=== PATIENT | female | born 1950 | race Caucasian/White ===

== ENCOUNTER 2016-08-06 13:38 | Emergency (ER) | payer OTHER ==
[~2016-08-06] VITALS: Wt 73.5 kg
[~2016-08-06 13:38] MED LIST: ALBU8.5H3 INH; AMLO5TAB4 PO; CALC500T12 PO; COSO10 BOTH EYES; FER325 PO; FLUO20CA38 PO; FOLI-49 PO; IBUP800T25 PO; LATA2.5D9 BOTH EYES; MONT10TA21 PO; MORP15TA92 PO; MORP30TA89 PO; PYRI50CA PO; SIMV20TA2 PO
[2016-08-06] MEDS ORDERED: ALBUTEROL 0.083% (NEB) 2.5 MG/3 ML AMP HHN STA (14:50)
--- NOTE | 2016-08-06 14:54 | ERD ---
ER Documentation Chief Complaint Date/Time DATE: 08/06/16 TIME: 14:52 Chief Complaint PRODUCTIVE COUGH FOR 2 WKS. NO DISTRESS. NOT BETTER WITH OTC MEDS HPI Patient is a 65-year-old female with past medical history of asthma and recent chemotherapy and breast cancer surgery 03/2016 presents to the ED with cough, congestion, wheezing 2 week. She states that she went to her primary care doctor last week for cough syrup but she still has wheezing and productive cough. She denies green sputum or hemoptysis. She denies night sweats. She denies headache, dizziness, neck pain or neck stiffness. She denies chest pain. She denies abdominal pain, nausea, vomiting or diarrhea. She denies leg pain or leg swelling. She denies recent travel. ROS All systems reviewed and are negative except as per history of present illness. Medications Home Meds Active Scripts Albuterol Sulfate* (Proair HFA*) 8.5 Gm Hfa.aer.ad, 2 PUFF INH Q4, #1 INHALER Prov:MARYANNE BARCLAY PA-C 08/06/16 Cetirizine Hcl* (Zyrtec*) 10 Mg Capsule, 10 MG PO DAILY, #20 TAB.CHEW Prov:CORINATARIMARYANNE LEWIS PA-C 08/06/16 Benzonatate* (Tessalon Perle*) 100 Mg Capsule, 100 MG PO Q8H Y for COUGH for 14 Days, CAP Prov:CORINATANAYANA LUEVANOAZ PA-C 08/06/16 Azithromycin* (Zithromax*) 250 Mg Tablet, 250 MG PO .INDIA DIRECTED, #6 TAB TAKE 500 MG (2 TABS) THE FIRST DAY THEN 250 MG (1 TAB) DAYS 2-5 Prov:MARYANNE BARCLAY PA-C 08/06/16 Ibuprofen* (Motrin*) 800 Mg Tab, 800 MG PO Q6H Y for PAIN AND OR ELEVATED TEMP, #30 TAB Prov:LEONIDES SANDOVAL MUSIC REHABILITATION THERAPIST 11/14/14 Reported Medications Fluoxetine Hcl* (Prozac*) 20 Mg Capsule, 20 MG PO DAILY, CAP 11/08/15 Albuterol Sulfate* (Proair HFA*) 8.5 Gm Hfa.aer.ad, 2 PUFF INH Q6H Y for WHEEZING AND SOB, #1 INHALER 11/08/15 Morphine Sulfate* (Ms Contin*) 30 Mg Tablet.sa, 30 MG PO Q12, TAB.SA 08/17/14 Morphine Sulfate* (Ms Contin*) 15 Mg Tablet.sa, 15 MG PO Q12, TAB 08/17/14 Latanoprost (Xalatan) 2.5 Ml Drops, 1 DROP BOTH EYES QHS 08/17/14 Dorzolamide-Timolol* (Cosopt*) 2%-0.5% Soln, 1 DROP BOTH EYES BID, BOTTLE 08/17/14 Ferrous Sulfate* (Ferrous Sulfate*) 325 Mg Tabec, 325 MG PO DAILY, TAB 01/09/14 Amlodipine Besylate* (Norvasc*) 5 Mg Tablet, 5 MG PO DAILY, TAB 01/09/14 Montelukast Sodium* (Singulair*) 10 Mg Tablet, 10 MG PO HS, TAB 01/09/14 Folic Acid* (Folic Acid*) 1 Mg Tablet, 1 MG PO DAILY, TAB 01/09/14 Pyridoxine Hcl* (Vitamin B-6*) 50 Mg Capsule, 50 MG PO DAILY, CAP 01/09/14 Simvastatin (Simvastatin) 20 Mg Tablet, 20 MG PO HS, TAB 01/09/14 Calcium Carbonate* (Oysco-500*) 1 Tab Tablet, 1 TAB PO DAILY, TAB 01/09/14 Allergies Allergies: Coded Allergies: sulfamethoxazole (Verified Allergy, Mild, RASHES, SWELLING, 08/06/16) trimethoprim (Verified Allergy, Mild, RASHES, SWELLING, 08/06/16) PMhx/Soc History of Surgery: Yes (BLADDER, BACK LIPOMA, HERNIA, breast) Anesthesia Reaction: No Hx Neurological Disorder: No Hx Respiratory Disorders: Yes (ASTHMA) Hx Cardiac Disorders: Yes (HTN, HYPERLIPIDEMIA) Hx Psychiatric Problems: No Hx Miscellaneous Medical Probl: No Hx Alcohol Use: No Hx Substance Use: No Hx Tobacco Use: No FmHx Family History: No coronary disease, No diabetes, No other Physical Exam Vitals Vital Signs Date Time Temp Pulse Resp B/P Pulse Ox O2 Delivery O2 Flow Rate FiO2 08/06/16 15:20 85 20 96 21 08/06/16 13:44 99.0 88 22 122/76 95 Physical Exam GENERAL: Well-developed, well-nourished female. Appears in no acute distress. ENT: Moist mucous membranes. No uvula deviation. No kissing tonsils. No exudates. NECK: Supple. No lymphadenopathy or thyromegaly. No meningismus. negative kernig. negative brudinski. LUNG: Clear to auscultation bilaterally. No rhonchi, rales or coarse breath sounds. Bilateral wheezing HEART: Regular rate and rhythm. No murmurs, rubs or gallops. ABDOMEN: No scars, ecchymosis or rashes noted. Soft, nontender, and nondistended. Positive bowel sounds in all four quadrants. No rebound tenderness , no guarding. (-) McBurneys point tenderness. No CVA tenderness. BACK: No midline tenderness. Extremities: Equal pulses bilaterally. No peripheral clubbing, cyanosis or edema. No unilateral leg swelling. Negative Homans sign NEUROLOGIC: Alert and oriented. Moving all four extremities. 5/5 strength in all extremities. Normal speech. Steady gait. SKIN: Normal color. Warm and dry. No rashes or lesions. Capillary refill < 2 seconds Results 24 hrs Current Medications Medications (Trade) Dose Ordered Sig/Alejandra Route PRN Reason Start Time Stop Time Status Last Admin Dose Admin Albuterol (Proventil 0.083% (Neb)) 2.5 mg ONCE STAT N 08/06/16 14:50 08/06/16 14:52 DC 08/06/16 15:18 Ipratropium [place] (Atrovent 0.02% (Neb)) 0.5 mg ONCE ONCE HHN 08/06/16 15:00 08/06/16 15:01 DC 08/06/16 15:18 Dexamethasone (Decadron) 10 mg ONCE ONCE IM 08/06/16 16:00 08/06/16 16:01 DC 08/06/16 15:55 Procedures/MDM ER COURSE: I kept the patient and/or family informed of laboratory and diagnostic imaging results throughout the emergency room course. IMAGING STUDIES [place] [id number] Radiology Main Line: [phone] DIAGNOSTIC IMAGING REPORT Patient: FABI DENTON : 1950 Age: 65 Sex: F MR #: [id number] DOS: 08/06/16 1450 Ordering MD: MARYANNE BARCLAY PA-C Location: [facility] Room/Bed: PROCEDURE: CHEST 1VW CLINICAL INDICATION: Shortness of breath TECHNIQUE: Single frontal view of the chest was obtained COMPARISON: 11/08/2015 FINDINGS: The cardiac size is normal. Aortic vascular calcifications are demonstrated. There is no pulmonary vascular congestion. The lungs are clear. No consolidation, effusion, or pneumothorax. Mild degenerative changes of the visualized osseous structures are visualized. IMPRESSION: 1. No acute cardiopulmonary process. 2. Atherosclerosis with a tortuous aorta is seen. RPTAT:PP .Rajesh Carrasco MD, Date Time Electronically viewed and signed by .Rajesh Carrasco MD, on 08/06/2016 15:11 .V/ CC: MARYANNE BARCLAY PA-C PROCEDURES RT consult. Albuterol and Atrovent. Tolerated well with no adverse reaction. Decadron 10 mg IM. Tolerated well with no adverse reaction MEDICAL DECISION MAKING: This is a 65-year-old female with a history of asthma who presents with cough, congestion and runny nose 2 weeks. Vital signs were reviewed. Patient is afebrile. Patient is not hypoxic. Patient is not toxic or ill-appearing. Patient likely has URI of viral etiology. Her x-rays of by radiologist is unremarkable. However due to her history of asthma and recent chemotherapy I will be treating the patient with an antibiotic. Patient does not show signs of respiratory distress. I reexamined patient after breathing treatment and she stated improvement in symptoms. Low suspicion for pneumonia, PE, pneumothorax, ACS, epiglottitis, obstruction, TB, pertussis, meningitis, sepsis. I have low suspicion for PE or DVT. Patient is not tachycardic and does not have leg swelling. DISCHARGE: At this time, patient is stable for discharge and outpatient management with no new complaints during the ER course. Patient was sent home with azithromycin, Tessalon Perles, Zyrtec, albuterol. Patient will be discharged home with instructions to recheck for new or worsening symptoms such as fever, nausea, weakness, LOC and to follow up with primary care in the next 1-2 days. Patient was advised to return to the ER for any new or worsening symptoms. Plan was discussed and patient and/or family understands and agrees. Home instructions were given. Departure Diagnosis: Primary Impression: Cough Condition: Stable MARYANNE BARCLAY PA-C August 06, 2016 14:54
[2016-08-06] MEDS ORDERED: IPRATROPIUM (NEB) 0.5 MG/2.5 ML AMP HHN ONE (15:00)
--- NOTE | 2016-08-06 15:12 | RADRPT ---
PROCEDURE: CHEST 1VW CLINICAL INDICATION: Shortness of breath TECHNIQUE: Single frontal view of the chest was obtained COMPARISON: 11/08/2015 FINDINGS: The cardiac size is normal. Aortic vascular calcifications are demonstrated. There is no pulmonary vascular congestion. The lungs are clear. No consolidation, effusion, or pneumothorax. Mild degenerative changes of the visualized osseous structures are visualized. IMPRESSION: 1. No acute cardiopulmonary process. 2. Atherosclerosis with a tortuous aorta is seen. RPTAT:PP .Rajesh Carrasco MD, Date Time Electronically viewed and signed by .Rajesh Carrasco MD, on 08/06/2016 15:11 .V/
[2016-08-06] MEDS ORDERED: AZIT250T94 PO (15:22)
[2016-08-06] MEDS ORDERED: CETI10CA PO (15:45)
[2016-08-06] MEDS ORDERED: BENZ100C70 PO (15:45)
[2016-08-06] MEDS ORDERED: ALBU8.5H3 INH (15:46)
[2016-08-06] MEDS ORDERED: DEXAMETHASONE 10 MG/ML 1 ML INJ IM ONE (16:00)
[2016-08-06 16:05] VITALS: BP 112/62; PULSE 64; RESP 22; TEMP 98.7
== END 2016-08-06 16:05 | disposition home or self-care (01) ==
LOC: FTE 13:38
DX: R05 Cough (principal); I10 Essential (primary) hypertension; J45.909 Unspecified asthma, uncomplicated
CPT/HCPCS: 71010; 94664; 96372; J1100; Z7502; Z7610

== ENCOUNTER 2017-01-05 22:04 | Inpatient (IN) | payer OTHER ==
[~2017-01-05] VITALS: Ht 157.5 cm; Wt 81.0 kg
[~2017-01-05 22:04] MED LIST changes: +AZIT250T94 PO; +BENZ100C70 PO; +CETI10CA PO
[2017-01-05] MEDS ORDERED: ONDANSETRON 4 MG INJ IV STA (22:49)
[2017-01-05 22:50] LABS: BASOPHILS % 0.4 % (0.0-2.0); EOSINOPHILS # 0.1 10^3/ul (0.0-0.5); EOSINOPHILS % 1.5 % (0.0-7.0); HEMATOCRIT 43.8 % (37.0-47.0); HEMOGLOBIN 14.6 g/dl (12.0-16.0); MEAN CORPUSCULAR HEMOGLOBIN 32.7 pg (29.0-33.0); MEAN CORPUSCULAR HGB CONC 33.3 g/dl (32.0-37.0); MEAN PLATELET VOLUME 9.6 fl (7.4-10.4); MONOCYTE # 0.7 10^3/ul (0.3-0.9); MONOCYTES % 8.9 % (0.0-11.0); NEUTROPHIL # 5.9 10^3/ul (1.6-7.5); NEUTROPHILS % 75.6 % (39.0-77.0); PLATELET COUNT 216 10^3/UL (140-415); RED BLOOD COUNT 4.47 10^6/ul (4.20-5.40); RED CELL DISTRIBUTION WIDTH 12.8 % (11.5-14.5); WHITE BLOOD COUNT 7.8 10^3/ul (4.8-10.8)
[2017-01-05] MEDS ORDERED: LORAZEPAM 2 MG INJ IV ONE (23:00)
[2017-01-05 23:08] LABS: ANION GAP 11 (8-16); BLOOD UREA NITROGEN 21 mg/dl (7-20); CALCIUM 9.3 mg/dl (8.4-10.2); CARBON DIOXIDE 22 mmol/L (21-31); CHLORIDE 106 mmol/L (97-110); CREATININE 0.79 mg/dl (0.44-1.00); GLUCOSE 135 mg/dl (70-220); POTASSIUM 4.5 mmol/L (3.5-5.1); SODIUM 134 mmol/L (135-144)
[2017-01-05 23:24] LABS: TROPONIN-I < 0.012 ng/ml (0.00-0.12)
--- NOTE | 2017-01-06 00:10 | RADRPT ---
PROCEDURE: Chest xray. CLINICAL INDICATION: Chest pain TECHNIQUE: A portable semiupright AP view of the chest was obtained. COMPARISON: 08/06/2016 FINDINGS: The cardiomediastinal silhouette is within normal limits. Atherosclerotic calcifications are again n oted in the aorta. The lungs are well expanded and show normal vascularity. No focal opacity, pleur al effusion, or pneumothorax is identified. The skeletal structures and soft tissues are unremarkab le. IMPRESSION: No acute intrathoracic abnormality. RPTAT:PP .Loren Bernal MD, MD Date Time Electronically viewed and signed by .Loren Bernal MD, on 01/06/2017 00:10 .K/
--- NOTE | 2017-01-06 00:44 | RADRPT ---
PROCEDURE: CT HEAD WITHOUT CONTRAST: CLINICAL INDICATION: 66 years of age female. Headache . COMPARISON: None available. TECHNIQUE: CT of the head was performed without IV contrast. Coronal and sagittal reformatted images were obtained from the axial source images. Images were reviewed on a high-resolution PACS workstat ion. Dose information: The estimated radiation dose (CTDI vol mGy) for each series in this exam is 45 and 45. The estimated cumulative dose (DLP mGy-cm) is 1440. One or more of the following dose reduction techniques were used: - Automated exposure control. - Adjustment of the mA and/or kV according to patient size. - Use of iterative reconstruction technique. FINDINGS: Parenchyma: Negative for evidence of acute intraparenchymal hemorrhage, mass effect or large territo ry infarct. Mena-white matter differentiation is maintained. Minimal atherosclerotic calcification i nvolving the right supraclinoid internal carotid artery and bilateral cavernous carotid arteries. Ventricles and extra-axial spaces: Appropriate for age. No abnormal extra-axial fluid collections ar e identified. Negative for evidence of acute subarachnoid or extra-axial hemorrhage. Visualized paranasal sinuses: Clear. Mastoid air cells: Clear. Bones: There is a 2.6 cm lytic lesion in the right frontal bone that results in destruction of the o uter and inner tables of the skull. There is another 0.8 cm lytic lesion also in the right frontal b one. Additional comment: 1.3 cm subcutaneous nodule overlying the left zygomatic arch may represent a nikki aceous cyst (5/3). IMPRESSION: 1. Negative for evidence of acute intracranial hemorrhage or mass effect. 2. Two lytic lesions in the right frontal bone measuring up to 2.6 cm are concerning for metastatic disease. Findings were discussed with Dr. Swanson by Dr. Liza Vega on January 06, 2017 at 12:40 AM. He in dicates the patient has a history of breast cancer. RPTAT: HCTS Physician Junior Date Time Electronically viewed and signed by Torrie Vega Physician on 01/06/2017 00:44 CS/
[2017-01-06] MEDS ORDERED: morphine 4 MG/ML VIAL IV STA (02:09)
--- NOTE | 2017-01-06 03:11 | ERA ---
ER Documentation Chief Complaint Date/Time DATE: 01/06/17 TIME: 03:09 Chief Complaint c/o SB, asthma, high blood pressure, CP x 4 days. HPI This is a 66-year-old who comes in with complaints of headache for the past 4 days. She said she still anxious average that she feels like her blood pressure may be running high as well. Pain is mild to moderate in intensity though does not do well with no chills denies any other current complaints denies any focal neurological issues denies any visual changes ROS All systems reviewed and are negative except as per history of present illness. Medications Home Meds Active Scripts Albuterol Sulfate* (Proair HFA*) 8.5 Gm Hfa.aer.ad, 2 PUFF INH Q4, #1 INHALER Prov:MARYANNE BARCLAY-C 08/06/16 Cetirizine Hcl* (Zyrtec*) 10 Mg Capsule, 10 MG PO DAILY, #20 TAB.CHEW Prov:MARYANNE BARCLAY-C 08/06/16 Benzonatate* (Tessalon Perle*) 100 Mg Capsule, 100 MG PO Q8H Y for COUGH for 14 Days, CAP Prov:MARYANNE BARCLAY PA-C 08/06/16 Azithromycin* (Zithromax*) 250 Mg Tablet, 250 MG PO .ZPACK DIRECTED, #6 TAB TAKE 500 MG (2 TABS) THE FIRST DAY THEN 250 MG (1 TAB) DAYS 2-5 Prov:MARYANNE BARCLAY-C 08/06/16 Ibuprofen* (Motrin*) 800 Mg Tab, 800 MG PO Q6H Y for PAIN AND OR ELEVATED TEMP, #30 TAB Prov:LEONIDES SANDOVAL. UPKEEP MECHANIC 11/14/14 Reported Medications Fluoxetine Hcl* (Prozac*) 20 Mg Capsule, 20 MG PO DAILY, CAP 11/08/15 Albuterol Sulfate* (Proair HFA*) 8.5 Gm Hfa.aer.ad, 2 PUFF INH Q6H Y for WHEEZING AND SOB, #1 INHALER 11/08/15 Morphine Sulfate* (Ms Contin*) 30 Mg Tablet.sa, 30 MG PO Q12, TAB.SA 08/17/14 Morphine Sulfate* (Ms Contin*) 15 Mg Tablet.sa, 15 MG PO Q12, TAB 08/17/14 Latanoprost (Xalatan) 2.5 Ml Drops, 1 DROP BOTH EYES QHS 08/17/14 Dorzolamide-Timolol* (Cosopt*) 2%-0.5% Soln, 1 DROP BOTH EYES BID, BOTTLE 08/17/14 Ferrous Sulfate* (Ferrous Sulfate*) 325 Mg Tabec, 325 MG PO DAILY, TAB 01/09/14 Amlodipine Besylate* (Norvasc*) 5 Mg Tablet, 5 MG PO DAILY, TAB 01/09/14 Montelukast Sodium* (Singulair*) 10 Mg Tablet, 10 MG PO HS, TAB 01/09/14 Folic Acid* (Folic Acid*) 1 Mg Tablet, 1 MG PO DAILY, TAB 01/09/14 Pyridoxine Hcl* (Vitamin B-6*) 50 Mg Capsule, 50 MG PO DAILY, CAP 01/09/14 Simvastatin (Simvastatin) 20 Mg Tablet, 20 MG PO HS, TAB 01/09/14 Calcium Carbonate* (Oysco-500*) 1 Tab Tablet, 1 TAB PO DAILY, TAB 01/09/14 Allergies Allergies: Coded Allergies: sulfamethoxazole (Verified Allergy, Mild, RASHES, SWELLING, 08/06/16) trimethoprim (Verified Allergy, Mild, RASHES, SWELLING, 08/06/16) PMhx/Soc History of Surgery: Yes (BLADDER, BACK LIPOMA, HERNIA, breast) Anesthesia Reaction: No Hx Neurological Disorder: No Hx Respiratory Disorders: Yes (ASTHMA) Hx Cardiac Disorders: Yes (HTN, HYPERLIPIDEMIA) Hx Psychiatric Problems: No Hx Miscellaneous Medical Probl: No Hx Alcohol Use: No Hx Substance Use: No Hx Tobacco Use: No Smoking Status: Never smoker Physical Exam Vitals Vital Signs Date Time Temp Pulse Resp B/P Pulse Ox O2 Delivery O2 Flow Rate FiO2 01/06/17 01:55 68 18 164/104 98 Room Air 01/05/17 22:09 98.4 75 18 159/74 96 Physical Exam Const: [] Head: Atraumatic Eyes: Normal Conjunctiva ENT: Normal External Ears, Nose and Mouth. Neck: Full range of motion..~ No meningismus. Resp: Clear to auscultation bilaterally Cardio: Regular rate and rhythm, no murmurs Abd: Soft, non tender, non distended. Normal bowel sounds Skin: No petechiae or rashes Back: No midline or flank tenderness Ext: No cyanosis, or edema Neur: Awake and alert Psych: Normal Mood and Affect Result Diagram: 01/05/17223901/05/172239 Results 24 hrs Laboratory Tests Test 01/05/17 22:40 White Blood Count 7.810^3/ul Red Blood Count 4.4710^6/ul Hemoglobin 14.6g/dl Hematocrit 43.8% Mean Corpuscular Volume 98.0fl Mean Corpuscular Hemoglobin 32.7pg Mean Corpuscular Hemoglobin Concent 33.3g/dl Red Cell Distribution Width 12.8% Platelet Count 71389^3/UL Mean Platelet Volume 9.6fl Neutrophils % 75.6% Lymphocytes % 13.0% Monocytes % 8.9% Eosinophils % 1.5% Basophils % 0.4% Nucleated Red Blood Cells % 0.0/100WBC Neutrophils # 5.910^3/ul Lymphocytes # 1.010^3/ul Monocytes # 0.710^3/ul Eosinophils # 0.110^3/ul Basophils # 0.010^3/ul Nucleated Red Blood Cells # 0.010^3/ul Sodium Level 134mmol/L Potassium Level 4.5mmol/L Chloride Level 106mmol/L Carbon Dioxide Level 22mmol/L Anion Gap 11 Blood Urea Nitrogen 21mg/dl Creatinine 0.79mg/dl Glucose Level 135mg/dl Calcium Level 9.3mg/dl Troponin I < 0.012ng/ml Current Medications Medications (Trade) Dose Ordered Sig/Alejandra Route PRN Reason Start Time Stop Time Status Last Admin Dose Admin Lorazepam (Ativan) 1 mg ONCE ONCE IV 01/05/17 23:00 01/05/17 23:01 DC 01/05/17 22:58 Ondansetron HCl (Zofran Inj) 4 mg ONCE STAT IV 01/05/17 22:49 01/05/17 22:51 DC 01/05/17 22:58 Morphine Sulfate (morphine) 4 mg ONCE STAT IV 01/06/17 02:09 01/06/17 02:10 DC 01/06/17 02:19 Procedures/MDM EKG: Rate/Rhythm: [Normal Sinus Rhythm] QRS, ST, T-waves: [No changes consistent w/ acute ischemia] Impression: [No evidence of ischemia or arrhythmia] Chest X-ray 1V Interpreted by me: Soft Tissue: No acute abnormalities Bones: No acute abnormalities Mediastinum/Cardiac Silhouette/Lungs: [No acute abnormalities] Adequate decision-making: This very pleasant patient who comes in with complaints of headache. There are noted lytic lesions on CT scan likely for metastatic disease per the radiologist. Patient will be admitted to the hospital to Dr. Medellin for further evaluation and management Departure Diagnosis: Primary Impression: Head ache Qualified Code: R51 - Nonintractable headache, unspecified chronicity pattern , unspecified headache type Condition: Serious DANIEL CHANG Jan 06, 2017 03:10
[2017-01-06 03:16] VITALS: PULSE 68; TEMP 98.8
[2017-01-06 03:36] VITALS: BP 158/92; RESP 16
[2017-01-06 04:06] VITALS: Ht 157.5 cm; Wt 81.0 kg
[2017-01-06] MEDS ORDERED: ALBUTEROL 18 GM INHALER INH PRN (05:00)
[2017-01-06 05:14] LABS: CREATINE KINASE 28 IU/L (23-200)
[2017-01-06 05:28] LABS: CK-MB 0.25 ng/ml (0.0-2.4)
[2017-01-06 05:30] LABS: TROPONIN-I < 0.012 ng/ml (0.00-0.12)
[2017-01-06] MEDS ORDERED: CARBOXYMETHYLCELLULOSE 0.5% 0.1 ML OPH BOTH EYES PRN (06:30)
[2017-01-06] MEDS: SOD CHLORIDE 0.9% 1,000 ML IV SCH (06:43)
[2017-01-06] MEDS: morphine 2 MG INJ IV PRN ×2 (06:44→11:23)
[2017-01-06 07:42] VITALS: BP 140/61; RESP 19
[2017-01-06] MEDS: CALCIUM CARBONATE 1.25 GM TAB PO SCH ×2 (08:27→10:04)
[2017-01-06] MEDS: FERROUS SULFATE (EC) 325 MG TAB PO SCH ×2 (08:27→09:00)
[2017-01-06] MEDS: PYRIDOXINE 50 MG TAB PO SCH ×2 (08:27→09:00)
[2017-01-06] MEDS: FLUOXETINE 20 MG CAP PO SCH (08:27)
[2017-01-06] MEDS: AMLODIPINE 5 MG TAB PO SCH (08:28)
[2017-01-06] MEDS: DORZOLAMIDE/TIMOLOL 10 ML OPH BOTH EYES SCH ×2 (08:28→20:09)
[2017-01-06] MEDS: FOLIC ACID 1 MG TAB PO SCH ×2 (08:28→09:00)
[2017-01-06] MEDS: BRIMONIDINE 0.1% 5 ML OPH BOTH EYES SCH (08:29)
[2017-01-06] MEDS ORDERED: morphine (ER) 15 MG TAB PO SCH (09:00)
[2017-01-06] MEDS ORDERED: morphine (ER) 30 MG TAB PO SCH (09:00)
[2017-01-06] MEDS ORDERED: ONDANSETRON 4 MG INJ IV PRN (11:30)
[2017-01-06 12:26] LABS: CREATINE KINASE 28 IU/L (23-200)
[2017-01-06 12:35] LABS: CK-MB 0.24 ng/ml (0.0-2.4)
[2017-01-06 12:39] LABS: TROPONIN-I < 0.012 ng/ml (0.00-0.12)
[2017-01-06] MEDS: morphine 4 MG/ML VIAL IV PRN ×3 (15:26→23:38)
[2017-01-06 19:30] VITALS: BP 125/78; RESP 19
[2017-01-06] MEDS: MONTELUKAST 10 MG TAB PO SCH (20:06)
[2017-01-06] MEDS: LATANOPROST 0.005% 2.5 ML OPH BOTH EYES SCH (20:06)
[2017-01-06] MEDS: ATORVASTATIN 10 MG TAB PO SCH (20:06)
--- NOTE | 2017-01-06 20:41 | QN ---
Documentation Comment [id number] LUIS RO MD Jan 06, 2017 20:41
[2017-01-07 02:30] VITALS: BP 120/60; RESP 18
[2017-01-07] MEDS: SOD CHLORIDE 0.9% 1,000 ML IV SCH ×2 (05:00→19:52)
[2017-01-07] MEDS: morphine 4 MG/ML VIAL IV PRN ×4 (05:11→21:42)
--- NOTE | 2017-01-07 05:35 | HP ---
DATE OF ADMISSION: 01/06/2017 HISTORY OF PRESENT ILLNESS: The patient is a 66-year-old female with history of breast cancer, status post right breast surgery, presented to this hospital with headache, noted to have lytic lesion on the scalp by CT scan and Dr. Pope, who is the primary oncologist, has been called. The patient is being admitted for further management . Denies numbness, weakness, tingling. PAST MEDICAL HISTORY: Positive for breast CA, history of hypertension, history of shoulder pain in the past, history of DJD, history of hernia repair and removal of benign tumor from the neck, history of asthma by history, history of invasive carcinoma of the right breast status post right partial mastectomy, history of treatment in the past. ALLERGY HISTORY: SEPTRA. SOCIAL HISTORY: Negative. FAMILY HISTORY: Negative. MEDICATION HISTORY: Patient is on: 1. Albuterol. 2. Amlodipine. 3. Zithromax. 4. Benzonatate. 5. Calcium carbonate. 6. Zyrtec. 7. Cosopt. 8. eye drops 9. Fluoxetine. 10. Folic acid. 11. Ibuprofen. 12. Xalatan. 13. Singulair. 14. tums. 15. mvi_. 16. Simvastatin. REVIEW OF SYSTEMS: HEENT: Headache. RESPIRATORY: Unremarkable. CARDIOVASCULAR: Unremarkable. ABDOMEN: Unremarkable. EXTREMITIES: No swelling. CENTRAL NERVOUS SYSTEM: No numbness, weakness, tingling. MUSCULOSKELETAL: Generalized pain. PHYSICAL EXAMINATION: GENERAL: The patient is awake, alert. VITAL SIGNS: Stable. HEAD: Atraumatic, normocephalic. Pupils equal, reactive to light. NECK: Supple. There is no JVD. LUNGS: Clear. CARDIOVASCULAR: S1, S2 normal. ABDOMEN: Soft, nontender. Bowel sounds present. No palpable mass or hepatosplenomegaly. EXTREMITIES: No cyanosis, clubbing, edema. CENTRAL NERVOUS SYSTEM: The patient is awake, alert, no focal deficit. LABORATORY DATA: Chest x-ray negative. CT brain shows: 1. Negative evidence of acute intracranial hemorrhage. 2. Lytic lesion in the right frontal bone, and noted measuring 2.6 cm. IMPRESSION: 1. Lytic bone lesion in the scalp. 2. History of breast cancer. 3. Rule out metastatic carcinoma. 4. The patient has hyponatremia. PLAN: To continue home medication, pain medication, blood pressure medication and later on, patient will have oncology consultation with Dr. Pope. Orders were done. Dictated By: LUIS RO MD BS/NTS Conf#: [id number] DID#: [id number] MTDD
[2017-01-07 08:12] VITALS: BP 147/72; RESP 18
[2017-01-07] MEDS: DORZOLAMIDE/TIMOLOL 10 ML OPH BOTH EYES SCH ×2 (09:00→20:40)
[2017-01-07] MEDS ORDERED: INFLUENZA VIRUS VACCINE 0.5 ML (DISPENSING) IM* ONE (09:00)
[2017-01-07] MEDS: BRIMONIDINE 0.1% 5 ML OPH BOTH EYES SCH (09:17)
[2017-01-07] MEDS: PYRIDOXINE 50 MG TAB PO SCH (09:17)
[2017-01-07] MEDS: FOLIC ACID 1 MG TAB PO SCH (09:18)
[2017-01-07] MEDS: FERROUS SULFATE (EC) 325 MG TAB PO SCH (09:18)
[2017-01-07] MEDS: AMLODIPINE 5 MG TAB PO SCH (09:18)
[2017-01-07] MEDS: CALCIUM CARBONATE 1.25 GM TAB PO SCH (09:18)
[2017-01-07] MEDS: FLUOXETINE 20 MG CAP PO SCH (09:18)
[2017-01-07] MEDS ORDERED: BARIUM SULF 2% 450 ML BTL (BERRY SMOOTHIE) PO ONE (10:00)
[2017-01-07] MEDS ORDERED: SOD CHLORIDE 0.9% 100 ML ONE (11:42)
[2017-01-07] MEDS ORDERED: IODIXANOL LOCM 100 ML BTL ONE (11:42)
--- NOTE | 2017-01-07 14:35 | RADRPT ---
PROCEDURE: CT Abdomen and Pelvis with contrast. CLINICAL INDICATION: Metastatic disease. TECHNIQUE: Multiple contiguous axial CT images of the abdomen and pelvis were obtained following t he administration of 100 cc of Visipaque 320. Coronal and sagittal reconstructions were also perfor med. CTDIvol (mGy): 16.54; Total Exam DLP (mGy-cm): 1183.96. One or more of the following dose reduction techniques were utilized: - Automated exposure control. - Adjustment of the mA and/or kV according to patient size. - Use of iterative reconstruction technique. COMPARISON: 12/25/2007. FINDINGS: The liver and spleen are homogeneous in enhancement. Cholelithiasis is present. The pancreas and ri ght adrenal gland are unremarkable. There is a 5.0 cm left adrenal myelolipoma, which is grossly unc hanged in size. The kidneys are symmetric in size and enhancement. There is no hydronephrosis or abnormal perinephr ic inflammation. There are no ureteral stones. The abdominal aorta is normal in caliber. Atherosclerotic calcification is present. There is no lambert aortic / retroperitoneal lymphadenopathy. 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 Bariatric surgical changes are identified. The small intestines are unremarkable. A moderate volume of air and stool are seen throughout the colon. Diverticulosis of the distal colon is present. The a ppendix is normal. There are no focal inflammatory changes of the mesentery. There is no mesenteric lymphadenopathy. There is no ascites. The bladder is collapsed. Nonspecific heterogeneity of the uterine myometrium is observed. There is a 3.9 cm circumscribed round cyst of simple fluid density within the left ovary, which previously me asured 2.9 cm. There is a 2.2 cm cyst within the right ovary, which is unchanged in size. There is n o free pelvic fluid. There is no pelvic sidewall or inguinal lymphadenopathy. Multilevel degenerative disc disease of the lumbar spine is observed. Bilateral L5 pars interarticul carissa defects are present. Facet degenerative changes of the lower lumbar spine are observed. Severe right hip osteoarthritis is observed. Body wall soft tissues are unremarkable. IMPRESSION: No evidence of abdominopelvic metastatic disease, mass, lymphadenopathy or acute inflammatory pathol ogy. Cholelithiasis. No evidence of cholecystitis. Diverticulosis. No evidence of diverticulitis. 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 Stable left adrenal myelolipoma. RPTAT: HLST .Yany Cardona MD, MD Date Time Electronically viewed and signed by .Yany Cardona MD, MD on 01/07/2017 14:35 .T/
--- NOTE | 2017-01-07 14:44 | RADRPT ---
PROCEDURE: CT Chest with contrast. CLINICAL INDICATION: Breast cancer. Evaluate for metastases. TECHNIQUE: CT scan of the chest with contrast was performed following the uncomplicated intravenou s administration of 100 cc of Visipaque 320. Coronal and sagittal reformatted images were obtained from the axial source images. Images were reviewed on a high-resolution PACS workstation. CTDIvol (m Gy): 16.54; Total Exam DLP (mGy-cm): 1183.96. One or more of the following dose reduction techniques were utilized: - Automated exposure control. - Adjustment of the mA and/or kV according to patient size. - Use of iterative reconstruction technique. COMPARISON: Chest x-ray 01/05/2017. CTA chest 11/08/2015. FINDINGS: Limited imaging of the lower neck is unremarkable. The heart is not enlarged. There is no pericardial effusion. There is no mediastinal, hilar or axi llary lymphadenopathy. There is a 6.3 x 1.3 cm elongated right pericardial cyst which is smaller in size. The thoracic aorta is normal in caliber. Atherosclerotic calcification is present. Coronary artery calcifications are present. The pulmonary arteries are not enlarged. There is no pulmonary consolidation, pleural effusion or concerning pulmonary nodule. Mild subpleur al fibrotic changes are seen within the right upper lobe. Scattered atelectatic changes are seen wit hin the lung bases. The tracheobronchial tree is normal in caliber with mild diffuse bronchial wall thickening. Mild degenerative changes of the thoracic spine are present. There are no concerning osseous lesions . Skin and trabecular thickening of the visualized portion of the right breast is observed. IMPRESSION: No evidence of pulmonary metastases. No evidence of mass, lymphadenopathy or acute inflammatory pathology of the chest. Skin and trabecular thickening of the visualized portion of the right breast. Correlate with the [facility] ient's dedicated breast imaging. Small right pericardial cyst, smaller in size. RPTAT: HLST .Yany Cardona MD, Date Time Electronically viewed and signed by .Yany Cardona MD, on 01/07/2017 14:43 .T/
--- NOTE | 2017-01-07 17:53 | PN ---
Date/Time of Note Date/Time of Note DATE: 01/07/17 TIME: 17:52 Assessment/Plan VTE Prophylaxis VTE Prophylaxis Intervention: other Lines/Catheters IV Catheter Type (from [facility]): Peripheral IV Urinary Cath still in place: No Assessment/Plan Chief Complaint/Hosp Course IMPRESSION: 1. Lytic bone lesion in the scalp. 2. History of breast cancer. 3. Rule out metastatic carcinoma. 4. The patient has hyponatremia. PLAN ONCOLOGY CONSULT Problems: Subjective 24 Hr Interval Summary Constitutional: No chills Respiratory: no complaints Exam/Review of Systems Vital Signs Vitals Vital Signs Date Time Temp Pulse Resp B/P Pulse Ox O2 Delivery O2 Flow Rate FiO2 01/07/17 08:12 98.0 53 18 147/72 100 01/06/17 03:16 Room Air Intake and Output 01/06/17 01/06/17 01/07/17 15:00 23:00 07:00 Intake Total 1380 ml 520 ml Output Total 800 ml Balance 1380 ml -280 ml Exam Respiratory: clear to auscultation Cardiovascular: regular rate and rhythm Gastrointestinal: soft Musculoskeletal: nl extremities to inspection Extremities: normal pulses Results Result Diagram: 01/05/17223901/05/172239 Medications Medications Current Medications Albuterol (Ventolin Hfa) 2 puff Q6H PRN INH WHEEZING AND SOB; Start 01/06/17 at 05:00 Amlodipine Besylate (Norvasc) 5 mg DAILY PO Last administered on 01/07/17 09: 18; Admin Dose 5 MG; Start 01/06/17 at 09:00 Calcium Carbonate (Oyster Shell Calcium) 1.25 gm DAILY PO Last administered on 01/07/17 09:18; Admin Dose 1.25 GM; Start 01/06/17 at 09:00 Dorzolamide/ Timolol (Cosopt) 1 drop BID BOTH EYES Last administered on 20:09; Admin Dose 1 DROP; Start 01/06/17 at 09:00 Ferrous Sulfate (Ferrous Sulfate (Ec)) 325 mg DAILY PO Last administered on 09:18; Admin Dose 325 MG; Start 01/06/17 at 09:00 Fluoxetine HCl (Prozac) 20 mg DAILY PO Last administered on 01/07/17 09:18; Admin Dose 20 MG; Start 01/06/17 at 09:00 Folic Acid (Folic Acid) 1 mg DAILY PO Last administered on 01/07/17 09:18; Admin Dose 1 MG; Start 01/06/17 at 09:00 Latanoprost (Xalatan) 1 drop QHS BOTH EYES Last administered on 01/06/17 20:06 ; Admin Dose 1 DROP; Start 01/06/17 at 21:00 Montelukast Sodium (Singulair) 10 mg HS PO Last administered on 01/06/17 20:06 ; Admin Dose 10 MG; Start 01/06/17 at 21:00 Pyridoxine HCl (Vitamin B6) 50 mg DAILY PO Last administered on 01/07/17 09: 17; Admin Dose 50 MG; Start 01/06/17 at 09:00 Atorvastatin Calcium 10 mg 10 mg HS PO Last administered on 01/06/17 20:06; Admin Dose 10 MG; Start 01/06/17 at 21:00 Sodium Chloride (NS) 1,000 ml @ 30 mls/hr Q24H IV Last administered on 06:43; Admin Dose 30 MLS/HR; Start 01/06/17 at 05:00 Eye Lubricant (Refresh Plus) 1 drop QID PRN BOTH EYES DRYNESS Last administered on 01/06/17 20:06; Admin Dose 1 DROP; Start 01/06/17 at 06:30 Brimonidine Tartrate (Alphagan P 0.1%) 1 drop DAILY BOTH EYES Last administered on 01/07/17 09:17; Admin Dose 1 DROP; Start 01/06/17 at 09:00 Miscellaneous Information Patients own medicat... BID@10,16 XX Last administered on 01/07/17 16:17; Admin Dose 1 EA; Start 01/06/17 at 10:00 Morphine Sulfate (morphine) 3 mg Q4H PRN IV pain Last administered on 17:41; Admin Dose 3 MG; Start 01/06/17 at 12:00 Ondansetron HCl (Zofran Inj) 4 mg Q6H PRN IV NAUSEA AND/OR VOMITING; Start 01/06/17 at 11:30 LUIS RO MD Jan 07, 2017 17:53
[2017-01-07 19:20] VITALS: BP 111/71; RESP 20
[2017-01-07] MEDS: ATORVASTATIN 10 MG TAB PO SCH (20:40)
[2017-01-07] MEDS: MONTELUKAST 10 MG TAB PO SCH (20:40)
[2017-01-07] MEDS: LATANOPROST 0.005% 2.5 ML OPH BOTH EYES SCH (20:40)
--- NOTE | 2017-01-07 22:11 | CONS ---
Date/Time of Note Date/Time of Note DATE: 01/07/17 TIME: 22:09 Assessment/Plan Assessment/Plan Chief Complaint/Hosp Course 66 yo female with #Early Stage ER+ Breast CA -continue Tamoxifen for now -thus far CT C/A/P does not reveal evidence of distant mets #Headache -CT Brain snows questionable lytic lesions in skull -will order Brain MRI to further evaluate for brain or skull based mets -if there are mets that are causing sx may need to consider radiation -will defer to primary oncologist Dr. Pope #Hypertension -blood pressure currently controlled on norvasc -will continue Problems: Consultation Date/Type/Reason Admit Date/Time Jan 06, 2017 at 01:40 Date of Consultation: Jan 07, 2017 Type of Consultation: Oncology Reason for Consultation h/o breast cancer Referring Provider: LUIS RO Hx of Present Illness Ms Moore is a 66 yo female with a history of ER + breast Cancer followed by Dr. Pope who underwent partial mastectomy followed by radiation. She was then started on Tamoxifen in Feb 2016 per the patient. She now presents with severe headaches x 2 weeks that she states is like a band around her head. CT Head was done which revealed possible lytic lesions in the skull but no evidence of intracranial disease. Pt also had a CT C/A/P done which revealed no evidence of metastatic disease. Constitutional: No chills Eyes: no complaints, pain ENT: no complaints, other (headache) Respiratory: no complaints Cardiovascular: no complaints Gastrointestinal: no complaints Genitourinary: no complaints Musculoskeletal: no complaints Neurologic: headache Past Medical History Positive for breast CA, history of hypertension, history of shoulder pain in the past, history of DJD, history of hernia repair and removal of benign tumor from the neck, history of asthma by history, history of invasive carcinoma of the right breast status post right partial mastectomy, history of treatment in the past. Family History Significant Family History: no pertinent family hx Social History Alcohol Use: none Smoking Status: Never smoker Drug Use: none Exam/Review of Systems Vital Signs Vitals Vital Signs Date Time Temp Pulse Resp B/P Pulse Ox O2 Delivery O2 Flow Rate FiO2 01/07/17 19:20 98.3 73 20 111/71 97 01/06/17 03:16 Room Air Intake and Output 01/06/17 01/06/17 01/07/17 15:00 23:00 07:00 Intake Total 1380 ml 520 ml Output Total 800 ml Balance 1380 ml -280 ml Exam Constitutional: alert, distress, oriented Psych: no complaints Head: normocephalic Eyes: nl conjunctiva ENMT: nl external ears & nose Neck: non-tender, supple Respiratory: clear to auscultation Cardiovascular: nl pulses, regular rate and rhythm Gastrointestinal: soft Musculoskeletal: nl extremities to inspection Extremities: normal pulses Results Result Diagram: 01/05/17223901/05/172239 Medications Medications Current Medications Albuterol (Ventolin Hfa) 2 puff Q6H PRN INH WHEEZING AND SOB; Start 01/06/17 at 05:00 Amlodipine Besylate (Norvasc) 5 mg DAILY PO Last administered on 01/07/17 09: 18; Admin Dose 5 MG; Start 01/06/17 at 09:00 Calcium Carbonate (Oyster Shell Calcium) 1.25 gm DAILY PO Last administered on 01/07/17 09:18; Admin Dose 1.25 GM; Start 01/06/17 at 09:00 Dorzolamide/ Timolol (Cosopt) 1 drop BID BOTH EYES Last administered on 20:40; Admin Dose 1 DROP; Start 01/06/17 at 09:00 Ferrous Sulfate (Ferrous Sulfate (Ec)) 325 mg DAILY PO Last administered on 09:18; Admin Dose 325 MG; Start 01/06/17 at 09:00 Fluoxetine HCl (Prozac) 20 mg DAILY PO Last administered on 01/07/17 09:18; Admin Dose 20 MG; Start 01/06/17 at 09:00 Folic Acid (Folic Acid) 1 mg DAILY PO Last administered on 01/07/17 09:18; Admin Dose 1 MG; Start 01/06/17 at 09:00 Latanoprost (Xalatan) 1 drop QHS BOTH EYES Last administered on 01/07/17 20: 40; Admin Dose 1 DROP; Start 01/06/17 at 21:00 Montelukast Sodium (Singulair) 10 mg HS PO Last administered on 01/07/17 20: 40; Admin Dose 10 MG; Start 01/06/17 at 21:00 Pyridoxine HCl (Vitamin B6) 50 mg DAILY PO Last administered on 10/10/17at 09: 17; Admin Dose 50 MG; Start 01/06/17 at 09:00 Atorvastatin Calcium 10 mg 10 mg HS PO Last administered on 01/07/17 20:40; Admin Dose 10 MG; Start 01/06/17 at 21:00 Sodium Chloride (NS) 1,000 ml @ 30 mls/hr Q24H IV Last administered on 19:52; Admin Dose 30 MLS/HR; Start 01/06/17 at 05:00 Eye Lubricant (Refresh Plus) 1 drop QID PRN BOTH EYES DRYNESS Last administered on 01/06/17 20:06; Admin Dose 1 DROP; Start 01/06/17 at 06:30 Brimonidine Tartrate (Alphagan P 0.1%) 1 drop DAILY BOTH EYES Last administered on 01/07/17 09:17; Admin Dose 1 DROP; Start 01/06/17 at 09:00 Miscellaneous Information Patients own medicat... BID@10,16 XX Last administered on 01/07/17 16:17; Admin Dose 1 EA; Start 01/06/17 at 10:00 Morphine Sulfate (morphine) 3 mg Q4H PRN IV pain Last administered on 21:42; Admin Dose 3 MG; Start 01/06/17 at 12:00 Ondansetron HCl (Zofran Inj) 4 mg Q6H PRN IV NAUSEA AND/OR VOMITING; Start 01/06/17 at 11:30 CALE YOUNGBLOOD M.D. Jan 07, 2017 22:11
[2017-01-08 02:01] VITALS: BP 126/75; RESP 20
[2017-01-08] MEDS: morphine 4 MG/ML VIAL IV PRN ×4 (04:50→23:22)
[2017-01-08 07:48] VITALS: BP 120/60
--- NOTE | 2017-01-08 08:26 | RADRPT ---
PROCEDURE: MR Brain with and without contrast. CLINICAL INDICATION: History of breast cancer, headache, abnormal CT. TECHNIQUE: An MRI of the brain was performed on a [employer] 1.5 elba scanner utilizing the following seq uences: Sagittal T1 weighted, axial T2 weighted, axial FLAIR, coronal GRE, and axial diffusion weigh rakesh with ADC mapping. Additionally, postcontrast coronal, sagittal, and axial T1-weighted sequences were performed after 10 cc of Magnevist were given intravenously without complication. COMPARISON: CT brain 01/05/2017. FINDINGS: No high signal abnormalities are seen on the diffusion-weighted images to suggest the presence of ac nicolas ischemia or recent infarct. There is no evidence of intracranial hemorrhage, mass effect, or mi dline shift. No extra-axial fluid collections are seen. Mild diffuse volume loss is evident. Incr eased T2-weighted/FLAIR signal intensity is noted within the periventricular and deep white matter, consistent with mild microvascular ischemic disease. There is a small chronic lacunar infarct in the right basal ganglia. Mild to moderate microvascular ischemic disease is seen in the leslie. The cereb ellum is normal in signal intensity. No hypointense signal abnormalities are seen on the GRE images to suggest the presence of blood degradation products. Normal flow voids are visible in the proxima l intracranial arteries and dural sinuses, indicating patency. The postcontrast images show no abno rmal parenchymal, leptomeningeal, or dural enhancement. There is mild mucosal thickening within the ethmoid and maxillary sinuses. There is a 3.1 x 2.5 x 1.2 cm soft tissue mass within the right frontal bone involving the diploic s pace and extending to the inner and outer table. Marked thinning and possible minimal breech of the outer table as noted on CT. The mass is quite hyperintense on the T2-weighted images and mixed signa l intensity on the T1-weighted images with areas of increased signal intensity and decreased signal intensity. The postcontrast images show robust and minimally heterogeneous enhancement. There is a s maller similar subtle lesion more posteriorly in the right frontal bone involving the diploic space. The calvarium is otherwise grossly normal in appearance. No abnormal enhancement of the overlying s calp is noted. IMPRESSION: 1. No evidence of acute intracranial pathology. 2. 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 Consider short-term 3-6 months follow-up to document stability. 3. Mild diffuse volume loss with mild microvascular ischemic disease in the periventricular and arabella p white matter. There is a small chronic lacunar infarct in the right lentiform nucleus. 4. There is mild to moderate microvascular ischemic disease in the leslie. RPTAT: HJAH .Alessandra Degroot MD, MD Date Time Electronically viewed and signed by .Alessandra Degroot MD, MD on 01/08/2017 08:26 .H/
[2017-01-08] MEDS: PYRIDOXINE 50 MG TAB PO SCH (09:43)
[2017-01-08] MEDS: FLUOXETINE 20 MG CAP PO SCH (09:43)
[2017-01-08] MEDS: FERROUS SULFATE (EC) 325 MG TAB PO SCH (09:43)
[2017-01-08] MEDS: CALCIUM CARBONATE 1.25 GM TAB PO SCH (09:43)
[2017-01-08] MEDS: FOLIC ACID 1 MG TAB PO SCH (09:43)
[2017-01-08] MEDS: AMLODIPINE 5 MG TAB PO SCH (09:43)
[2017-01-08] MEDS: BRIMONIDINE 0.1% 5 ML OPH BOTH EYES SCH (09:44)
[2017-01-08] MEDS: DORZOLAMIDE/TIMOLOL 10 ML OPH BOTH EYES SCH ×2 (09:44→21:54)
--- NOTE | 2017-01-08 17:02 | CONS ---
Date/Time of Note Date/Time of Note DATE: 01/08/17 TIME: 17:01 Assessment/Plan Assessment/Plan Chief Complaint/Hosp Course 66 yo female with #Early Stage ER+ Breast CA -continue Tamoxifen for now -thus far CT C/A/P does not reveal evidence of distant mets #Headache -Brain MRI dhows no evidence of mets. Lesions seen on CT are likely hemangiomas --given there is no evidence of recurrence her headaches are likely unrelated to her underlying diagnosis of cancer -will defer to primary oncologist Dr. Pope #Hypertension -blood pressure currently controlled on norvasc -will continue Problems: Consultation Date/Type/Reason Admit Date/Time Jan 06, 2017 at 01:40 Initial Consult Date 01/07/17 Type of Consultation: Oncology Reason for Consultation breast ca Referring Provider: LUIS RO MD 24 HR Interval Summary Free Text/Dictation pt still with headaches . BRAIN MRI done Detailed Summary Eyes: no complaints Neurologic: headache Exam/Review of Systems Vital Signs Vitals Vital Signs Date Time Temp Pulse Resp B/P Pulse Ox O2 Delivery O2 Flow Rate FiO2 01/08/17 07:48 97.8 57 120/60 98 01/08/17 02:01 20 01/06/17 03:16 Room Air Intake and Output 01/07/17 01/07/17 01/08/17 15:00 23:00 07:00 Intake Total 1130 ml 1150 ml Output Total 900 ml 950 ml Balance 230 ml 200 ml Exam Constitutional: alert, oriented Psych: no complaints Head: normocephalic Eyes: nl conjunctiva ENMT: nl external ears & nose Neck: non-tender, supple Respiratory: clear to auscultation Cardiovascular: regular rate and rhythm Gastrointestinal: soft Musculoskeletal: nl extremities to inspection Results Result Diagram: 01/05/17223901/05/170 Medications Medications Current Medications Albuterol (Ventolin Hfa) 2 puff Q6H PRN INH WHEEZING AND SOB; Start 01/06/17 at 05:00 Amlodipine Besylate (Norvasc) 5 mg DAILY PO Last administered on 01/08/17 09: 43; Admin Dose 5 MG; Start 01/06/17 at 09:00 Calcium Carbonate (Oyster Shell Calcium) 1.25 gm DAILY PO Last administered on 01/08/17 09:43; Admin Dose 1.25 GM; Start 01/06/17 at 09:00 Dorzolamide/ Timolol (Cosopt) 1 drop BID BOTH EYES Last administered on 09:44; Admin Dose 1 DROP; Start 01/06/17 at 09:00 Ferrous Sulfate (Ferrous Sulfate (Ec)) 325 mg DAILY PO Last administered on 09:43; Admin Dose 325 MG; Start 01/06/17 at 09:00 Fluoxetine HCl (Prozac) 20 mg DAILY PO Last administered on 01/08/17 09:43; Admin Dose 20 MG; Start 01/06/17 at 09:00 Folic Acid (Folic Acid) 1 mg DAILY PO Last administered on 01/08/17 09:43; Admin Dose 1 MG; Start 01/06/17 at 09:00 Latanoprost (Xalatan) 1 drop QHS BOTH EYES Last administered on 01/07/17 20: 40; Admin Dose 1 DROP; Start 01/06/17 at 21:00 Montelukast Sodium (Singulair) 10 mg HS PO Last administered on 01/07/17 20: 40; Admin Dose 10 MG; Start 01/06/17 at 21:00 Pyridoxine HCl (Vitamin B6) 50 mg DAILY PO Last administered on 01/08/17 09: 43; Admin Dose 50 MG; Start 01/06/17 at 09:00 Atorvastatin Calcium 10 mg 10 mg HS PO Last administered on 01/07/17 20:40; Admin Dose 10 MG; Start 01/06/17 at 21:00 Sodium Chloride (NS) 1,000 ml @ 30 mls/hr Q24H IV Last administered on 19:52; Admin Dose 30 MLS/HR; Start 01/06/17 at 05:00 Eye Lubricant (Refresh Plus) 1 drop QID PRN BOTH EYES DRYNESS Last administered on 01/06/17 20:06; Admin Dose 1 DROP; Start 01/06/17 at 06:30 Brimonidine Tartrate (Alphagan P 0.1%) 1 drop DAILY BOTH EYES Last administered on 01/08/17 09:44; Admin Dose 1 DROP; Start 01/06/17 at 09:00 Miscellaneous Information Patients own medicat... BID@10,16 XX Last administered on 01/08/17 10:24; Admin Dose 1 EA; Start 01/06/17 at 10:00 Morphine Sulfate (morphine) 3 mg Q4H PRN IV pain Last administered on 10:58; Admin Dose 3 MG; Start 01/06/17 at 12:00 Ondansetron HCl (Zofran Inj) 4 mg Q6H PRN IV NAUSEA AND/OR VOMITING; Start 01/06/17 at 11:30 CALE YOUNGBLOOD M.D. Jan 08, 2017 17:02
--- NOTE | 2017-01-08 20:23 | PN ---
Date/Time of Note Date/Time of Note DATE: 01/08/17 TIME: 20:22 Assessment/Plan VTE Prophylaxis VTE Prophylaxis Intervention: other Lines/Catheters IV Catheter Type (from Nrs): Peripheral IV Urinary Cath still in place: No Assessment/Plan Chief Complaint/Hosp Course IMPRESSION: 1. Lytic bone lesion in the scalp.MRI SEEN 2. History of breast cancer. 3. Rule out metastatic carcinoma. 4. The patient has hyponatremia. PLAN ONCOLOGY CONSULT SEEN PAIN MEDS Problems: Subjective 24 Hr Interval Summary Subjective hx not possible: other (HEADACHE BETTER W MEDS REFUSED NORCOOR ULTRAM) Respiratory: no complaints Exam/Review of Systems Vital Signs Vitals Vital Signs Date Time Temp Pulse Resp B/P Pulse Ox O2 Delivery O2 Flow Rate FiO2 01/08/17 07:48 97.8 57 120/60 98 01/08/17 02:01 20 01/06/17 03:16 Room Air Intake and Output 01/07/17 01/07/17 01/08/17 15:00 23:00 07:00 Intake Total 1130 ml 1150 ml Output Total 900 ml 950 ml Balance 230 ml 200 ml Exam Neck: supple Respiratory: clear to auscultation Cardiovascular: regular rate and rhythm Gastrointestinal: soft Musculoskeletal: nl extremities to inspection Extremities: normal pulses Results Result Diagram: 01/05/17223901/05/172239 Medications Medications Current Medications Albuterol (Ventolin Hfa) 2 puff Q6H PRN INH WHEEZING AND SOB; Start 01/06/17 at 05:00 Amlodipine Besylate (Norvasc) 5 mg DAILY PO Last administered on 01/08/17 09: 43; Admin Dose 5 MG; Start 01/06/17 at 09:00 Calcium Carbonate (Oyster Shell Calcium) 1.25 gm DAILY PO Last administered on 01/08/17 09:43; Admin Dose 1.25 GM; Start 01/06/17 at 09:00 Dorzolamide/ Timolol (Cosopt) 1 drop BID BOTH EYES Last administered on 09:44; Admin Dose 1 DROP; Start 01/06/17 at 09:00 Ferrous Sulfate (Ferrous Sulfate (Ec)) 325 mg DAILY PO Last administered on 09:43; Admin Dose 325 MG; Start 01/06/17 at 09:00 Fluoxetine HCl (Prozac) 20 mg DAILY PO Last administered on 01/08/17 09:43; Admin Dose 20 MG; Start 01/06/17 at 09:00 Folic Acid (Folic Acid) 1 mg DAILY PO Last administered on 01/08/17 09:43; Admin Dose 1 MG; Start 01/06/17 at 09:00 Latanoprost (Xalatan) 1 drop QHS BOTH EYES Last administered on 01/07/17 20: 40; Admin Dose 1 DROP; Start 01/06/17 at 21:00 Montelukast Sodium (Singulair) 10 mg HS PO Last administered on 01/07/17 20: 40; Admin Dose 10 MG; Start 01/06/17 at 21:00 Pyridoxine HCl (Vitamin B6) 50 mg DAILY PO Last administered on 01/08/17 09: 43; Admin Dose 50 MG; Start 01/06/17 at 09:00 Atorvastatin Calcium 10 mg 10 mg HS PO Last administered on 01/07/17 20:40; Admin Dose 10 MG; Start 01/06/17 at 21:00 Sodium Chloride (NS) 1,000 ml @ 30 mls/hr Q24H IV Last administered on 19:52; Admin Dose 30 MLS/HR; Start 01/06/17 at 05:00 Eye Lubricant (Refresh Plus) 1 drop QID PRN BOTH EYES DRYNESS Last administered on 01/06/17 20:06; Admin Dose 1 DROP; Start 01/06/17 at 06:30 Brimonidine Tartrate (Alphagan P 0.1%) 1 drop DAILY BOTH EYES Last administered on 01/08/17 09:44; Admin Dose 1 DROP; Start 01/06/17 at 09:00 Miscellaneous Information Patients own medicat... BID@10,16 XX Last administered on 01/08/17 16:00; Admin Dose 1 EA; Start 01/06/17 at 10:00 Morphine Sulfate (morphine) 3 mg Q4H PRN IV pain Last administered on 18:04; Admin Dose 3 MG; Start 01/06/17 at 12:00 Ondansetron HCl (Zofran Inj) 4 mg Q6H PRN IV NAUSEA AND/OR VOMITING; Start 01/06/17 at 11:30 LUIS RO MD Jan 08, 2017 20:23
[2017-01-08 20:42] VITALS: BP 109/56; RESP 20
[2017-01-08] MEDS: ATORVASTATIN 10 MG TAB PO SCH (21:53)
[2017-01-08] MEDS: MONTELUKAST 10 MG TAB PO SCH (21:53)
[2017-01-08] MEDS: LATANOPROST 0.005% 2.5 ML OPH BOTH EYES SCH (21:53)
[2017-01-09] MEDS: morphine 4 MG/ML VIAL IV PRN (04:39)
[2017-01-09] MEDS: SOD CHLORIDE 0.9% 1,000 ML IV SCH (04:51)
[2017-01-09 07:32] VITALS: BP 119/51; RESP 19
[2017-01-09] MEDS: BRIMONIDINE 0.1% 5 ML OPH BOTH EYES SCH (09:01)
[2017-01-09] MEDS: DORZOLAMIDE/TIMOLOL 10 ML OPH BOTH EYES SCH ×2 (09:01→21:40)
[2017-01-09] MEDS: CALCIUM CARBONATE 1.25 GM TAB PO SCH (09:02)
[2017-01-09] MEDS: FERROUS SULFATE (EC) 325 MG TAB PO SCH (09:02)
[2017-01-09] MEDS: AMLODIPINE 5 MG TAB PO SCH (09:02)
[2017-01-09] MEDS: FOLIC ACID 1 MG TAB PO SCH (09:02)
[2017-01-09] MEDS: FLUOXETINE 20 MG CAP PO SCH (09:02)
[2017-01-09] MEDS: PYRIDOXINE 50 MG TAB PO SCH (09:02)
[2017-01-09] MEDS: TOPIRAMATE 25 MG TAB PO SCH (14:18)
[2017-01-09 15:27] LABS: ALBUMIN 3.5 g/dl (3.3-4.9); ALBUMIN/GLOBULIN RATIO 1.12; BILIRUBIN,INDIRECT 0.2 mg/dl (0-1.1); BILIRUBIN,TOTAL 0.2 mg/dl (0.2-1.3); CALCIUM 9.1 mg/dl (8.4-10.2); CREATININE 0.84 mg/dl (0.44-1.00); POTASSIUM 4.5 mmol/L (3.5-5.1); TOTAL PROTEIN 6.6 g/dl (6.1-8.1)
--- NOTE | 2017-01-09 15:28 | PN ---
Date/Time of Note Date/Time of Note DATE: 01/09/17 TIME: 15:27 Assessment/Plan VTE Prophylaxis VTE Prophylaxis Intervention: other Lines/Catheters IV Catheter Type (from Nrs): Peripheral IV Urinary Cath still in place: No Assessment/Plan Chief Complaint/Hosp Course IMPRESSION: 1. Lytic bone lesion in the scalp.MRI SEEN 2. History of breast cancer. 3. Rule out metastatic carcinoma. 4. The patient has hyponatremia. 5 headache acute PLAN ONCOLOGY CONSULT SEEN PAIN MEDS topamax see neuro Problems: Subjective 24 Hr Interval Summary Subjective hx not possible: other (still headache,will see neuro) Exam/Review of Systems Vital Signs Vitals Vital Signs Date Time Temp Pulse Resp B/P Pulse Ox O2 Delivery O2 Flow Rate FiO2 01/09/17 07:32 98.2 71 19 119/51 98 01/06/17 03:16 Room Air Intake and Output 01/08/17 01/08/17 01/09/17 15:00 23:00 07:00 Intake Total 1000 ml 1300 ml Output Total 1000 ml 900 ml Balance 0 ml 400 ml Exam Neck: supple Respiratory: clear to auscultation Cardiovascular: regular rate and rhythm Gastrointestinal: soft Musculoskeletal: nl extremities to inspection Extremities: normal pulses Results Result Diagram: 01/05/17223901/05/172239 Results 24 hrs Laboratory Tests Test 01/09/17 12:41 Bedside Glucose 116 Medications Medications Current Medications Albuterol (Ventolin Hfa) 2 puff Q6H PRN INH WHEEZING AND SOB; Start 01/06/17 at 05:00 Amlodipine Besylate (Norvasc) 5 mg DAILY PO Last administered on 01/09/17 09: 02; Admin Dose 5 MG; Start 01/06/17 at 09:00 Calcium Carbonate (Oyster Shell Calcium) 1.25 gm DAILY PO Last administered on 01/09/17 09:02; Admin Dose 1.25 GM; Start 01/06/17 at 09:00 Dorzolamide/ Timolol (Cosopt) 1 drop BID BOTH EYES Last administered on 09:01; Admin Dose 1 DROP; Start 01/06/17 at 09:00 Ferrous Sulfate (Ferrous Sulfate (Ec)) 325 mg DAILY PO Last administered on 09:02; Admin Dose 325 MG; Start 01/06/17 at 09:00 Fluoxetine HCl (Prozac) 20 mg DAILY PO Last administered on 01/09/17 09:02; Admin Dose 20 MG; Start 01/06/17 at 09:00 Folic Acid (Folic Acid) 1 mg DAILY PO Last administered on 01/09/17 09:02; Admin Dose 1 MG; Start 01/06/17 at 09:00 Latanoprost (Xalatan) 1 drop QHS BOTH EYES Last administered on 01/08/17 21: 53; Admin Dose 1 DROP; Start 01/06/17 at 21:00 Montelukast Sodium (Singulair) 10 mg HS PO Last administered on 01/08/17 21: 53; Admin Dose 10 MG; Start 01/06/17 at 21:00 Pyridoxine HCl (Vitamin B6) 50 mg DAILY PO Last administered on 01/09/17 09: 02; Admin Dose 50 MG; Start 01/06/17 at 09:00 Atorvastatin Calcium 10 mg 10 mg HS PO Last administered on 01/08/17 21:53; Admin Dose 10 MG; Start 01/06/17 at 21:00 Sodium Chloride (NS) 1,000 ml @ 30 mls/hr Q24H IV Last administered on 04:51; Admin Dose 30 MLS/HR; Start 01/06/17 at 05:00 Eye Lubricant (Refresh Plus) 1 drop QID PRN BOTH EYES DRYNESS Last administered on 01/06/17 20:06; Admin Dose 1 DROP; Start 01/06/17 at 06:30 Brimonidine Tartrate (Alphagan P 0.1%) 1 drop DAILY BOTH EYES Last administered on 01/09/17 09:01; Admin Dose 1 DROP; Start 01/06/17 at 09:00 Miscellaneous Information Patients own medicat... BID@10,16 XX Last administered on 01/08/17 16:00; Admin Dose 1 EA; Start 01/06/17 at 10:00 Morphine Sulfate (morphine) 3 mg Q4H PRN IV pain Last administered on 04:39; Admin Dose 3 MG; Start 01/06/17 at 12:00 Ondansetron HCl (Zofran Inj) 4 mg Q6H PRN IV NAUSEA AND/OR VOMITING; Start 01/06/17 at 11:30 Topiramate (Topamax) 25 mg DAILY PO Last administered on 01/09/17t 14:18; Admin Dose 25 MG; Start 01/09/17 at 14:00 LUIS RO MD Jan 09, 2017 15:28
[2017-01-09 19:46] VITALS: BP 127/74; RESP 22
--- NOTE | 2017-01-09 20:18 | CONS ---
DATE OF ADMISSION: 01/06/2017 DATE OF CONSULTATION: 01/09/2017 NEUROSURGICAL CONSULTATION REQUESTING PHYSICIAN: Dr. Alexis Ro INDICATION FOR CONSULTATION: Skull lesion and headaches. HISTORY OF PRESENT ILLNESS: The patient is a 66-year-old right-handed female with a history of breast cancer diagnosed in 2016, status post right breast lumpectomy. The patient has undergone radiation and chemotherapy which she states she has completed. The patient comes to the hospital with complaints of headache. She states that the headache has lasted 4 days. She reports the headache is near the vertex of her head and is bilateral, and has throbbing, aching sensation. She reports that she has had 3 prior episodes of headache in the past year but these usually only last and hour to a day. She states she usually puts ice packs and takes medications and they eventually go away but this one has lasted much longer. She reports sensitivity to light and has some nausea. She denies any numbness, tingling or weakness in her arms or legs. She denies any cognitive difficulty. The patient had a CT scan of the head for evaluation of her headaches and this did not show any evidence of any intracerebral or extraaxial lesions or edema, nor did it show any evidence of bleed but there was a right frontal lesion. This was followed up with an MRI which again showed this this lesion, and this was interpreted by the radiologist to be most consistent with an interosseous hemangioma and unlikely to be a metastasis. Short term followup was recommended for stability. There was also noted to be a smaller subtle lesion more posterior in the right frontal bone involving the diploic space. There is no evidence of parenchymal, leptomeningeal or dural enhancement. PAST MEDICAL HISTORY: Significant for cancer, hypertension, right shoulder pain , asthma. PAST SURGICAL HISTORY: Significant for removal of benign tumor from the neck, right lumpectomy and hernia repair. ALLERGIES: SEPTRA. SOCIAL HISTORY: Nonsmoker, nondrinker. She is retired. FAMILY HISTORY: No history of inherited bleeding disorders. OUTPATIENT MEDICATIONS: Include: 1. Albuterol. 2. Amlodipine. 3. Zithromax. 4. . 5. Calcium carbonate. 6. Zyrtec 7. Cosopt eyedrops. 8. Fluoxetine. 9. Folic acid. 10. Ibuprofen. 11. Xalatan. 12. Singulair. 13. Tums. 14. Multivitamin. 15. Simvastatin. REVIEW OF SYSTEMS: A 12-point review of systems was performed. Pertinent positives and negatives listed in the history of present illness and below. CONSTITUTIONAL: Denies any fevers or chills or recent weight loss. HEMATOLOGIC: Denies any history of easy bruising or bleeding. PHYSICAL EXAMINATION: VITAL SIGNS: The patient's temperature is 98.2, pulse 71, respirations 19, blood pressure , saturating 98% on room air. GENERAL: The patient is a well-developed, moderately obese, late middle-aged female lying in the hospital bed in no acute distress. She initially had ice packs on her head and she was complaining of headache, currently 7/10 in severity. HEAD AND NECK: The patient does not have any palpable focal tenderness to palpation on her head. She is normocephalic. She has no obvious external lesions. Her neck is supple without Lhermitte sign. CARDIAC: Regular rate and rhythm. CHEST: Clear to auscultation. ABDOMEN: Nontender, nondistended, soft. EXTREMITIES: No clubbing, cyanosis or edema. NEUROLOGIC: The patient is awake, alert and oriented x3, fluent speech, follows commands readily and appropriately. She has normal attention and concentration. She has intact remote, immediate and recent memory. Cranial nerves II through XII are serially tested and are intact. On motor exam 5/5 bilateral upper and lower extremities. The patient has 2+ deep tendon reflexes throughout in her upper and lower extremities with no clonus, Babinski or Aida sign. Gait not assessed secondary to the patient's deferment secondary to headache. Sensation grossly intact to light touch. LABORATORY DATA: Her white count was 7.8, hemoglobin 14.6, platelets 216. Her sodium is slightly low at 134, BUN and creatinine 21 and 0.79. REVIEW OF RADIOGRAPHIC RESULTS: I reviewed the patient's CT scan of the head performed on 01/06/2017 as well as MRI of the brain performed on 01/08/2017 as well as radiologist's results as mentioned in the history of present illness. These studies were interpreted by Dr. Alessandra Degroot. ASSESSMENT AND PLAN: A 66-year-old female with headaches and right frontal bone skull lesion. I discussed the patient's signs, symptoms, physical examination, radiographic findings with her. I explained the patient does have a lesion in her skull though it is not clear if this is actually the source of the patient's headaches. The patient does not report a focal tenderness over the area of the mass and the episodic nature of the headaches with many long intervals of absence of symptoms does not suggest pain from a focal lesion. The radiologist feels that this lesion is not consistent with metastatic tumor but a hemangioma. Although these may be symptomatic, is not clear in this case that this is actually the source of the patient's headaches. I explained that there were a few options: 1. Serially follow this lesion and to assess for interval growth. I recommend this with a CT scan in 3 months to assess for any change. 2. The patient could undergo biopsy which may definitively diagnose this lesion though would unlikely rid the patient of her headaches if this is indeed is the source of her headaches. 3. The patient could undergo excision of the lesion. Again, if this is not the source of the patient's headaches it may not improve them but again would achieve a definitive diagnosis in excision of lesion. Again, if this is the source of the headaches it may help the patient's pain. Overall, I am not sure that this lesion is the source of the patient's headaches. The patient may have other source of headache and I believe a neurology consult should be obtained. The patient does report the headaches are the worst of her life and the intermittent episodic nature of these headaches appears somewhat unusual but may be concerning. I believe that although there is no blood seen on the CT scan a CT angiogram may be a reasonable study to rule out any type of vascular lesion such as an aneurysm. Should study be negative, I would simply recommend followup CT scan in 3 months to assess for any interval change. Should the lesion show that it is significantly growing over this period of time then excision would probably be indicated. The patient expressed understanding and agreement with this plan of care. Dictated By: SRUTHI NORTH MD LG/NTS Conf#: [id number] DID#: [id number] CC: ALEXIS RO MD; SRUTHI NORTH MD;*EndCC* MTDD
[2017-01-09] MEDS: ATORVASTATIN 10 MG TAB PO SCH (21:40)
[2017-01-09] MEDS: MONTELUKAST 10 MG TAB PO SCH (21:40)
[2017-01-09] MEDS: LATANOPROST 0.005% 2.5 ML OPH BOTH EYES SCH (21:47)
[2017-01-09] MEDS ORDERED: IOHEXOL 100 ML ONE (21:48)
[2017-01-09] MEDS ORDERED: SOD CHLORIDE 0.9% 100 ML ONE (21:48)
[2017-01-10] MEDS: DOCUSATE SODIUM 100 MG CAP PO SCH ×2 (01:00→08:54)
[2017-01-10] MEDS ORDERED: BISACODYL 10 MG SUPP PR PRN (01:00)
[2017-01-10 01:55] VITALS: BP 130/76; RESP 22
[2017-01-10] MEDS: SOD CHLORIDE 0.9% 1,000 ML IV SCH (05:00)
--- NOTE | 2017-01-10 08:53 | RADRPT ---
PROCEDURE: CTA Brain. CLINICAL INDICATION: Episodic severe headaches. TECHNIQUE: The study was performed utilizing a multi-slice multidetector CT scanner. Direct spiral 0.65 mm axial sections were obtained through the intracranial vasculature with the use of 95 cc of Omnipaque 350 nonionic intravenous contrast material. Coronal and sagittal MPRs as well as maximal intensity projection reformations were obtained. 3-D MIP images were also reviewed. The images were reviewed on a PACS workstation. The CTDIvol is 54.25, and 36.35 mGy and the DLP is 742.94 mGycm. One or more of the following dose reduction techniques were used: Automated exposure control Adjustment of the mA and/or kV according to patient size. Use of iterative reconstruction technique. COMPARISON: No prior studies are available for comparison. FINDINGS: The internal carotid arteries are patent and normal in caliber. The anterior cerebral and middle cer ebral arteries are patent and normal in caliber. There is a hypoplastic right vertebral artery. Theb asilar artery, superior cerebellar arteries, and posterior cerebral arteries are all normal in appea carlos. No aneurysm is identified. No vascular malformation is seen. Right frontal calvarial lesio ns are again identified. IMPRESSION: 1. No cerebral aneurysms or vascular malformations. 2. Patent intracranial arteries with no significant atherosclerotic changes. RPTAT: BB .Seamus Parks MD, Date Time Electronically viewed and signed by .Seamus Parks MD, MD on 01/10/2017 08:52 .O/
[2017-01-10] MEDS: CALCIUM CARBONATE 1.25 GM TAB PO SCH (08:54)
[2017-01-10] MEDS: FOLIC ACID 1 MG TAB PO SCH (08:54)
[2017-01-10] MEDS: AMLODIPINE 5 MG TAB PO SCH (08:54)
[2017-01-10] MEDS: FERROUS SULFATE (EC) 325 MG TAB PO SCH (08:54)
[2017-01-10] MEDS: TOPIRAMATE 25 MG TAB PO SCH (08:54)
[2017-01-10] MEDS: PYRIDOXINE 50 MG TAB PO SCH (08:55)
[2017-01-10] MEDS: DORZOLAMIDE/TIMOLOL 10 ML OPH BOTH EYES SCH (08:55)
[2017-01-10] MEDS: FLUOXETINE 20 MG CAP PO SCH (08:55)
[2017-01-10] MEDS: BRIMONIDINE 0.1% 5 ML OPH BOTH EYES SCH (09:10)
[2017-01-10 12:58] LABS: CALCIUM 9.1 mg/dl (8.4-10.2); CREATININE 0.86 mg/dl (0.44-1.00); POTASSIUM 4.5 mmol/L (3.5-5.1)
--- NOTE | 2017-01-10 13:38 | PDOCDIS ---
Discharge Instructions CONDITION Patient Condition: Guarded HOME CARE INSTRUCTIONS: Special Diet: 2gNA diet ACTIVITY: Activity Restrictions: Slowly Increase Activity FOLLOW UP/APPOINTMENTS Follow-up Plan f/u own pcp [address] dueñas 3 wks f/u [facility] [place] 2wLUIS Smalls MD Jan 10, 2017 13:38
[2017-01-10] MEDS ORDERED: BISA10SU75 PR (13:42)
[2017-01-10] MEDS ORDERED: IBUP800T25 PO (13:42)
[2017-01-10] MEDS ORDERED: TOPI25TA51 PO (13:42)
[2017-01-10] MEDS ORDERED: DOCU-216 PO (13:42)
[2017-01-10 14:55] LABS: BASOPHILS % 0.4 % (0.0-2.0); EOSINOPHILS # 0.1 10^3/ul (0.0-0.5); EOSINOPHILS % 1.6 % (0.0-7.0); HEMATOCRIT 41.3 % (37.0-47.0); HEMOGLOBIN 13.5 g/dl (12.0-16.0); LYMPHOCYTES # 0.9 10^3/ul (0.8-2.9); LYMPHOCYTES % 11.8 % (15.0-51.0); MEAN CORPUSCULAR HEMOGLOBIN 32.3 pg (29.0-33.0); MEAN CORPUSCULAR HGB CONC 32.7 g/dl (32.0-37.0); MEAN CORPUSCULAR VOLUME 98.8 fl (82.0-101.0); MEAN PLATELET VOLUME 10.2 fl (7.4-10.4); MONOCYTE # 0.6 10^3/ul (0.3-0.9); MONOCYTES % 7.4 % (0.0-11.0); NEUTROPHIL # 6.2 10^3/ul (1.6-7.5); NEUTROPHILS % 78.3 % (39.0-77.0); PLATELET COUNT 219 10^3/UL (140-415); RED BLOOD COUNT 4.18 10^6/ul (4.20-5.40); RED CELL DISTRIBUTION WIDTH 12.3 % (11.5-14.5); WHITE BLOOD COUNT 7.9 10^3/ul (4.8-10.8)
[2017-01-10 15:24] VITALS: BP 139/83; RESP 18
--- NOTE | 2017-01-10 16:20 | PN ---
Date/Time of Note Date/Time of Note DATE: 01/10/17 TIME: 16:18 Assessment/Plan VTE Prophylaxis VTE Prophylaxis Intervention: other Lines/Catheters IV Catheter Type (from Nrs): Saline Lock Urinary Cath still in place: No Assessment/Plan Chief Complaint/Hosp Course IMPRESSION: 1. Lytic bone lesion in the scalp.MRI SEEN seen by dr dueñas 2. History of breast cancer. 3. Rule out metastatic carcinoma. 4. The patient has hyponatremia. 5 headache better PLAN ONCOLOGY CONSULT SEEN PAIN MEDS topamax see neuro home Problems: Subjective 24 Hr Interval Summary Respiratory: no complaints Cardiovascular: no complaints Exam/Review of Systems Vital Signs Vitals Vital Signs Date Time Temp Pulse Resp B/P Pulse Ox O2 Delivery O2 Flow Rate FiO2 01/10/17 15:24 99.0 76 18 139/83 95 Intake and Output 01/09/17 01/09/17 01/10/17 15:00 23:00 07:00 Intake Total 1600 ml 1250 ml Output Total 900 ml Balance 1600 ml 350 ml Exam Respiratory: clear to auscultation Cardiovascular: regular rate and rhythm Gastrointestinal: soft Musculoskeletal: nl extremities to inspection Extremities: normal pulses Results Result Diagram: 01/10/17 1430 01/10/17 1043 Results 24 hrs Laboratory Tests Test 01/10/17 10:43 01/10/17 14:30 Sodium Level 137 Potassium Level 4.5 Chloride Level 106 Carbon Dioxide Level 26 Anion Gap 10 Blood Urea Nitrogen 16 Creatinine 0.86 Glucose Level 96 Hemoglobin A1c 5.5 Calcium Level 9.1 White Blood Count 7.9 Red Blood Count 4.18 L Hemoglobin 13.5 Hematocrit 41.3 Mean Corpuscular Volume 98.8 Mean Corpuscular Hemoglobin 32.3 Mean Corpuscular Hemoglobin Concent 32.7 Red Cell Distribution Width 12.3 Platelet Count 219 Mean Platelet Volume 10.2 Neutrophils % 78.3 H Lymphocytes % 11.8 L Monocytes % 7.4 Eosinophils % 1.6 Basophils % 0.4 Nucleated Red Blood Cells % 0.0 Neutrophils # 6.2 Lymphocytes # 0.9 Monocytes # 0.6 Eosinophils # 0.1 Basophils # 0.0 Nucleated Red Blood Cells # 0.0 Medications Medications Current Medications Albuterol (Ventolin Hfa) 2 puff Q6H PRN INH WHEEZING AND SOB; Start 01/06/17 at 05:00 Amlodipine Besylate (Norvasc) 5 mg DAILY PO Last administered on 01/10/17 08: 54; Admin Dose 5 MG; Start 01/06/17 at 09:00 Calcium Carbonate (Oyster Shell Calcium) 1.25 gm DAILY PO Last administered on 01/10/17 08:54; Admin Dose 1.25 GM; Start 01/06/17 at 09:00 Dorzolamide/ Timolol (Cosopt) 1 drop BID BOTH EYES Last administered on 08:55; Admin Dose 1 DROP; Start 01/06/17 at 09:00 Ferrous Sulfate (Ferrous Sulfate (Ec)) 325 mg DAILY PO Last administered on 08:54; Admin Dose 325 MG; Start 01/06/17 at 09:00 Fluoxetine HCl (Prozac) 20 mg DAILY PO Last administered on 01/10/17 08:55; Admin Dose 20 MG; Start 01/06/17 at 09:00 Folic Acid (Folic Acid) 1 mg DAILY PO Last administered on 01/10/17 08:54; Admin Dose 1 MG; Start 01/06/17 at 09:00 Latanoprost (Xalatan) 1 drop QHS BOTH EYES Last administered on 01/09/17 21: 47; Admin Dose 1 DROP; Start 01/06/17 at 21:00 Montelukast Sodium (Singulair) 10 mg HS PO Last administered on 01/09/17 21: 40; Admin Dose 10 MG; Start 01/06/17 at 21:00 Pyridoxine HCl (Vitamin B6) 50 mg DAILY PO Last administered on 01/10/17 08: 55; Admin Dose 50 MG; Start 01/06/17 at 09:00 Atorvastatin Calcium 10 mg 10 mg HS PO Last administered on 01/09/17 21:40; Admin Dose 10 MG; Start 01/06/17 at 21:00 Sodium Chloride (NS) 1,000 ml @ 30 mls/hr Q24H IV Last administered on 04:51; Admin Dose 30 MLS/HR; Start 01/06/17 at 05:00 Eye Lubricant (Refresh Plus) 1 drop QID PRN BOTH EYES DRYNESS Last administered on 01/06/17 20:06; Admin Dose 1 DROP; Start 01/06/17 at 06:30 Brimonidine Tartrate (Alphagan P 0.1%) 1 drop DAILY BOTH EYES Last administered on 01/10/17 09:10; Admin Dose 1 DROP; Start 01/06/17 at 09:00 Miscellaneous Information Patients own medicat... BID@10,16 XX Last administered on 01/10/17 10:38; Admin Dose 1 EA; Start 01/06/17 at 10:00 Morphine Sulfate (morphine) 3 mg Q4H PRN IV pain Last administered on 04:39; Admin Dose 3 MG; Start 01/06/17 at 12:00 Ondansetron HCl (Zofran Inj) 4 mg Q6H PRN IV NAUSEA AND/OR VOMITING; Start 01/06/17 at 11:30 Topiramate (Topamax) 25 mg DAILY PO Last administered on 01/10/17 08:54; Admin Dose 25 MG; Start 01/09/17 at 14:00 Bisacodyl (Dulcolax Supp) 10 mg DAILY PRN [place] CONSTIPATION Last administered on 01/10/17 01:05; Admin Dose 10 MG; Start 01/10/17 at 01:00 Docusate Sodium (Colace) 100 mg BID PO Last administered on 01/10/17 08:54; Admin Dose 100 MG; Start 01/10/17 at 01:00 LUIS RO MD Jan 10, 2017 16:20
--- NOTE | 2017-01-10 17:58 | CONS ---
Date/Time of Note Date/Time of Note DATE: 01/10/17 TIME: 17:49 Assessment/Plan Assessment/Plan Chief Complaint/Hosp Course Headache in a patient of breast carcinoma Problems: Additional Assessment/Plan Patient is a 66 yo female with a history of breast Cancer s/p partial mastectomy followed by radiation now presents with severe headaches x 2 weeks that she states is like a band around her head. CT Head was done which revealed possible lytic lesions in the skull but no evidence of intracranial disease. 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 Patient has been seen by Oncology and Neurosurgery. Examination is non focal. Plan 1. Start Topiramate 25 mg po qhs 2. OK to DC home and follow up as outpatient 3. Discussed with patient's daughter Consultation Date/Type/Reason Admit Date/Time Jan 06, 2017 at 01:40 Date of Consultation: Jan 10, 2017 Type of Consultation: Neurology Reason for Consultation Headache Referring Provider: LUIS RO MD Hx of Present Illness Patient is a 66 yo female with a history of breast Cancer s/p partial mastectomy followed by radiation now presents with severe headaches x 2 weeks that she states is like a band around her head. CT Head was done which revealed possible lytic lesions in the skull but no evidence of intracranial disease. 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 Patient has been seen by Oncology and Neurosurgery. Constitutional: No chills Eyes: no complaints ENT: no complaints, other (headache) Respiratory: no complaints Cardiovascular: no complaints Gastrointestinal: no complaints Genitourinary: no complaints Musculoskeletal: no complaints Neurologic: headache Psychological: no complaints Social History Alcohol Use: none Smoking Status: Never smoker Drug Use: none Exam/Review of Systems Vital Signs Vitals Vital Signs Date Time Temp Pulse Resp B/P Pulse Ox O2 Delivery O2 Flow Rate FiO2 01/10/17 15:24 99.0 76 18 139/83 95 Intake and Output 01/09/17 01/09/17 01/10/17 15:00 23:00 07:00 Intake Total 1600 ml 1250 ml Output Total 900 ml Balance 1600 ml 350 ml Exam Constitutional: alert, oriented, well developed Psych: nl mood/affect, no complaints Head: atraumatic, normocephalic Eyes: EOMI, nl conjunctiva, nl lids, nl sclera ENMT: mucosa pink and moist, nl external ears & nose, nl lips & teeth, nl nasal mucosa & septum Neck: non-tender, supple Respiratory: clear to auscultation, normal air movement Cardiovascular: nl pulses, regular rate and rhythm Gastrointestinal: nl liver, spleen, non-tender, soft Musculoskeletal: nl extremities to inspection, nl gait and stance Extremities: normal pulses Neurological: H[employer] II-XII intact, nl mental status, nl speech, nl strength Skin: nl turgor, rash or lesions Lymph: nl lymph nodes Results Result Diagram: 01/10/17 1430 01/10/17 1043 Results 24 hrs Laboratory Tests Test 01/10/17 10:43 01/10/17 14:30 Sodium Level 137 Potassium Level 4.5 Chloride Level 106 Carbon Dioxide Level 26 Anion Gap 10 Blood Urea Nitrogen 16 Creatinine 0.86 Glucose Level 96 Hemoglobin A1c 5.5 Calcium Level 9.1 White Blood Count 7.9 Red Blood Count 4.18 L Hemoglobin 13.5 Hematocrit 41.3 Mean Corpuscular Volume 98.8 Mean Corpuscular Hemoglobin 32.3 Mean Corpuscular Hemoglobin Concent 32.7 Red Cell Distribution Width 12.3 Platelet Count 219 Mean Platelet Volume 10.2 Neutrophils % 78.3 H Lymphocytes % 11.8 L Monocytes % 7.4 Eosinophils % 1.6 Basophils % 0.4 Nucleated Red Blood Cells % 0.0 Neutrophils # 6.2 Lymphocytes # 0.9 Monocytes # 0.6 Eosinophils # 0.1 Basophils # 0.0 Nucleated Red Blood Cells # 0.0 Medications Medications Current Medications Albuterol (Ventolin Hfa) 2 puff Q6H PRN INH WHEEZING AND SOB; Start 01/06/17 at 05:00 Amlodipine Besylate (Norvasc) 5 mg DAILY PO Last administered on 01/10/17 08: 54; Admin Dose 5 MG; Start 01/06/17 at 09:00 Calcium Carbonate (Oyster Shell Calcium) 1.25 gm DAILY PO Last administered on 01/10/17 08:54; Admin Dose 1.25 GM; Start 01/06/17 at 09:00 Dorzolamide/ Timolol (Cosopt) 1 drop BID BOTH EYES Last administered on 08:55; Admin Dose 1 DROP; Start 01/06/17 at 09:00 Ferrous Sulfate (Ferrous Sulfate (Ec)) 325 mg DAILY PO Last administered on 08:54; Admin Dose 325 MG; Start 01/06/17 at 09:00 Fluoxetine HCl (Prozac) 20 mg DAILY PO Last administered on 01/10/17 08:55; Admin Dose 20 MG; Start 01/06/17 at 09:00 Folic Acid (Folic Acid) 1 mg DAILY PO Last administered on 01/10/17 08:54; Admin Dose 1 MG; Start 01/06/17 at 09:00 Latanoprost (Xalatan) 1 drop QHS BOTH EYES Last administered on 01/09/17 21: 47; Admin Dose 1 DROP; Start 01/06/17 at 21:00 Montelukast Sodium (Singulair) 10 mg HS PO Last administered on 01/09/17 21: 40; Admin Dose 10 MG; Start 01/06/17 at 21:00 Pyridoxine HCl (Vitamin B6) 50 mg DAILY PO Last administered on 01/10/17 08: 55; Admin Dose 50 MG; Start 01/06/17 at 09:00 Atorvastatin Calcium 10 mg 10 mg HS PO Last administered on 01/09/17 21:40; Admin Dose 10 MG; Start 01/06/17 at 21:00 Sodium Chloride (NS) 1,000 ml @ 30 mls/hr Q24H IV Last administered on 04:51; Admin Dose 30 MLS/HR; Start 01/06/17 at 05:00 Eye Lubricant (Refresh Plus) 1 drop QID PRN BOTH EYES DRYNESS Last administered on 01/06/17 20:06; Admin Dose 1 DROP; Start 01/06/17 at 06:30 Brimonidine Tartrate (Alphagan P 0.1%) 1 drop DAILY BOTH EYES Last administered on 01/10/17 09:10; Admin Dose 1 DROP; Start 01/06/17 at 09:00 Miscellaneous Information Patients own medicat... BID@10,16 XX Last administered on 01/10/17 16:00; Admin Dose 1 EA; Start 01/06/17 at 10:00 Morphine Sulfate (morphine) 3 mg Q4H PRN IV pain Last administered on 04:39; Admin Dose 3 MG; Start 01/06/17 at 12:00 Ondansetron HCl (Zofran Inj) 4 mg Q6H PRN IV NAUSEA AND/OR VOMITING; Start 01/06/17 at 11:30 Topiramate (Topamax) 25 mg DAILY PO Last administered on 01/10/17 08:54; Admin Dose 25 MG; Start 01/09/17 at 14:00 Bisacodyl (Dulcolax Supp) 10 mg DAILY PRN [place] CONSTIPATION Last administered on 01/10/17 01:05; Admin Dose 10 MG; Start 01/10/17 at 01:00 Docusate Sodium (Colace) 100 mg BID PO Last administered on 01/10/17 08:54; Admin Dose 100 MG; Start 01/10/17 at 01:00 Procedures Procedures MRI of brain 01/10/17 IMPRESSION: 1. No evidence of acute intracranial pathology. 2. 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 Consider short-term 3-6 months follow-up to document stability. 3. Mild diffuse volume loss with mild microvascular ischemic disease in the periventricular and deep white matter. There is a small chronic lacunar infarct in the right lentiform nucleus. 4. There is mild to moderate microvascular ischemic disease in the leslie. RPTAT: HJAH .Alessandra Degroot MD, Date Time Electronically viewed and signed by .Alessandra Degroot MD, on 01/08/2017 08:26 NIEVES FRANCO MD Jan 10, 2017 17:58
--- NOTE | 2017-01-14 20:25 | QN ---
Documentation Comment [id number] LUIS RO MD Jan 14, 2017 20:25
--- NOTE | 2017-01-15 07:21 | DS ---
DATE OF ADMISSION: 01/06/2017 DATE OF DISCHARGE: 01/10/2017 HOSPITAL COURSE: The patient is a 66-year-old female with history of breast cancer status post righ t breast surgery. Presented with lytic lesion on the CT scan of the brain. The patient was seen by Dr. Fernandez in consultation. Initially consultation was placed with Dr. Pope, she is out of [facility]. Dr. Fernandez requested CT chest which shows the patient has no evidence of pulmonary metastasis, no evidence of mass, lymphadenopathy. The patient also had a brain MRI scan shows no evidence of acut e intracranial pathology, 3.1 x 2.5 x 1.2 cm interosseous right frontal calvarial lesion and small 5 mm posterior right frontal calvarial lesion was seen. A CT of the abdomen was also done shows no e vidence of abdominopelvic metastatic disease, mass, lymphadenopathy, cholelithiasis, diverticulosis. The patient had head CT angiogram shows no cerebral aneurysm, vascular malformation. Patient was seen by Dr. Torrez in consultation and Dr. Khanna. Dr. Torrez's impression and recommendations wer e followed. Patient has no evidence of acute intracranial pathology. The patient has headache. Th e patient is on Topamax which is helping her. Dr. Khanna also cleared this patient to be discharge d home with discharge diagnosis of patient has a 3.1 x 2.5 cm interosseous frontal calvarial lesion and a posterior right frontal lesion, headache, history of breast cancer. The patient's other diagn oses include hypertension, history of asthma, history of right lumpectomy, history of hernia repair. DISCHARGE MEDICATIONS: To continue on: 1. Bisacodyl. 2. . 3. Topamax. 4. Albuterol. 5. Amlodipine. 6. Tessalon Perles. 7. . 8. Zyrtec. 9. Cosopt eyedrops. 10. Iron sulfate. 11. Fluoxetine. 12. Folic acid. 13. Ibuprofen. 14. Xalatan. 15. Singulair. 16. Morphine. 17. Pyridoxine. 18. Simvastatin. DISCHARGE INSTRUCTIONS: The patient to follow up with PCP, Dr. Pope and Dr. Khanna, as an ou tpatient and Dr. Torrez an outpatient. DISPOSITION: Patient is stable at the time of discharge. Dictated By: LUIS GALLEGOS/MYRA Conf#: [id number] DID#: [id number]
== END 2017-01-10 18:30 | disposition home or self-care (01) | DRG 92 ==
LOC: E/R 22:04 → MS1 01-06 01:40
PROVIDERS: ADMIT Internal Medicine Nephrology; ATTEND Internal Medicine Nephrology
DX: D18.02 Hemangioma of intracranial structures (principal); E87.1 Hypo-osmolality and hyponatremia; C50.911 Malignant neoplasm of unspecified site of right female breast; M89.58 Osteolysis, other site; I10 Essential (primary) hypertension; R51 Headache; E78.5 Hyperlipidemia, unspecified; J45.909 Unspecified asthma, uncomplicated; Z17.0 Estrogen receptor positive status [ER+]; Z90.11 Acquired absence of right breast and nipple; Z98.890 Other specified postprocedural states
CPT/HCPCS: 36415; 70450; 70496; 70552; 71010; 71260; 74177; 80048; 80053; 82550; 82553; 82962; 83036; 84484; 85025; 90686; 93005; 96374; 96375; J2060; J2270; J2405; J7030; Q9967

== ENCOUNTER 2017-08-01 08:39 | Day surgery (SDC) | END 2017-08-04 14:57 | disposition home or self-care (01) ==

== ENCOUNTER 2018-03-18 08:41 | Day surgery (SDC) | END 2018-03-18 12:34 | disposition home or self-care (01) ==